=== PATIENT | male | born 1975 | race Hispanic/Latino ===

== ENCOUNTER 2020-05-16 07:39 | Emergency (ER) | payer SELFPAY ==
[~2020-05-16] VITALS: Ht 167.6 cm; Wt 79.4 kg
[2020-05-16 07:48] VITALS: BP 158/85
--- NOTE | 2020-05-16 07:55 | Emergency Department Note ---
History of Present Illnes History of Present Illness Chief Complaint: Eye, Ear, Nose, Throat, Dental History of Present Illness This is a 44 year old male pt c/o tooth pain, pt states that his pain started at around 0500 and pain woke him up from his sleep, pt states that he has a broken wisdom tooth on the right side but now the left upper molars are hurting, denies any medical hx. 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 Any updates have been documented here. Past Medical History Recent Fever: No Clinical Suspicion of Infectio: No New/Unexplained Change in Ment: No Past Medical History: None Past Surgical History: None Social History Smoking Cessation: Current every day smoker Counseling Performed: Yes Alcohol Use: Social Any Illegal Drug Use: No TB Exposure/Symptoms: No Physically hurt or threatened: No Family History Family history of heart diseas: No Other Last Tetanus: UNK Review of Systems Review of Systems Constitutional: Reports no symptoms EENTM: Reports as per HPI Cardiovascular: Reports no symptoms Respiratory: Reports no symptoms Gastrointestinal: Reports no symptoms Genitourinary: Reports no symptoms Musculoskeletal: Reports no symptoms Integumentary: Reports no symptoms Neurological: Reports no symptoms Psychological: Reports no symptoms Endocrine: Reports no symptoms Hematological/Lymphatic: Reports no symptoms Physical Exam Related Data Allergies: Coded Allergies: No Known Allergies (Unverified , 04/12/15) Triage Vital Signs Vital Signs Date Time Temp Pulse Resp B/P (MAP) Pulse Ox O2 Delivery O2 Flow Rate FiO2 05/16/20 07:42 97.9 92 22 168/110 100 Room Air Vital signs reviewed: Yes (patient would not sit down for vitals because "my tooth hurts too bad") Physical Exam CONSTITUTIONAL Constitutional: Present well-developed, Present well-nourished HENT HENT: Present dental caries, Present other (tooth #13 tender to tap, no abscess seen) HENT L/R: Present left ext ear normal, Present right ext ear normal EYES Eyes: Reports PERRL, Reports conjunctivae normal NECK Neck: Present ROM normal PULMONARY Pulmonary: Present effort normal, Present breath sounds normal CARDIOVASCULAR Cardiovascular: Present regular rhythm, Present heart sounds normal, Present capillary refill normal, Present normal rate GASTROINTESTINAL Abdominal: Present soft, Present nontender, Present bowel sounds normal GENITOURINARY Genitourinary: Present exam deferred SKIN Skin: Present warm, Present dry MUSCULOSKELETAL Musculoskeletal: Present ROM normal NEUROLOGICAL Neurological: Present alert, Present oriented x 3, Present no gross motor or sensory deficits PSYCHOLOGICAL Psychological: Present mood/affect normal, Present judgement normal Assessment & Plan Medical Decision Making MDM tooth pain, no abscess seen, no facial swelling Reassessment Reassessment DC home, Amoxil, Naprosyn, Tramadol (#12) Assessment & Plan Final Impression: (1) Tooth pain Depart Disposition: HOME, SELF-CARE Last Vital Signs Date Time Temp Pulse Resp B/P (MAP) Pulse Ox O2 Delivery O2 Flow Rate FiO2 05/16/20 07:42 97.9 92 22 168/110 100 Room Air SIDNEY RANGEL MD May 16, 2020 07:55
== END 2020-05-16 07:53 | disposition home or self-care (01) ==
LOC: ER 07:47
DX: K08.89 Other specified disorders of teeth and supporting structures (principal); F17.210 Nicotine dependence, cigarettes, uncomplicated
CPT/HCPCS: 99282

== ENCOUNTER 2022-02-16 12:18 | Emergency (ER) | payer SELFPAY ==
[~2022-02-16] VITALS: Ht 167.6 cm; Wt 79.4 kg
[~2022-02-16 12:18] MED LIST: NAPROXEN250 MG PO
[2022-02-16] MEDS ORDERED: HYDROCODONE/APAP 7.5MG-325MG 1 EA TAB PO PRN (12:45)
[2022-02-16] MEDS ORDERED: CYCLOBENZAPRINE HCL 10 MG TAB PO ONE (12:45)
[2022-02-16] MEDS ORDERED: DEXAMETHASONE SOD PHOS 10 MG/1 ML VIAL IM ONE (12:45)
[2022-02-16] MEDS ORDERED: NAPROXEN 250 MG TAB PO ONE (13:00)
== END 2022-02-16 13:39 | disposition home or self-care (01) ==
LOC: ER 12:30
DX: M25.521 Pain in right elbow (principal); M79.631 Pain in right forearm; M79.18 Myalgia, other site; I10 Essential (primary) hypertension
CPT/HCPCS: 73080; 99282; J1100